=== PATIENT | female | born 1970 | race Caucasian/White ===

== ENCOUNTER 2016-09-02 17:55 | Emergency (ER) | payer SELFPAY ==
[~2016-09-02] VITALS: Ht 177.8 cm; Wt 91.0 kg
[~2016-09-02 17:55] MED LIST: ATIVAN1 MG PO; PAXIL30 MG PO
[2016-09-02 23:52] LABS: INFLUENZA A POSITIVE (NONE DETECT); INFLUENZA B NONE DETECTED (NONE DETECT)
[2016-09-03] MEDS ORDERED: TAM75CAP PO (01:28)
[2016-09-03] MEDS ORDERED: CIPROFLOXACN500 MG PO (01:28)
[2016-09-03 01:38] VITALS: BP 147/93
== END 2016-09-03 01:38 | disposition home or self-care (01) | DRG 153 ==
LOC: ED 17:55
PROVIDERS: Emergency Medicine
DX: J11.1 Influenza due to unidentified influenza virus with other respiratory manifestations (principal); H66.90 Otitis media, unspecified, unspecified ear; R50.9 Fever, unspecified; R05 Cough